=== PATIENT | female | born 1980 | race Hispanic/Latino ===

== ENCOUNTER 2019-05-21 13:08 | Inpatient (IN) | payer MEDICAID, OTHER, SELFPAY ==
[~2019-05-21 13:08] MED LIST: Ondansetron PF 4 MG/2 ML Vial ONE; PHENYLEPHRINE-NS 100 MCG/ML 10 ML SYRINGE ONE; ePHEDrine 50 MG/ML VIAL ONE
[2019-05-21 13:44] VITALS: BMI 31.1
[2019-05-21] MEDS ORDERED: Butorphanol Tartrate 1 MG/ML VIAL SLOW IVP PRN (14:02)
[2019-05-21] MEDS ORDERED: hydrALAZINE 20 MG/ML VIAL SLOW IVP PRN ×2 (14:02→23:10)
[2019-05-21] MEDS ORDERED: Ondansetron PF 4 MG/2 ML Vial IVP PRN ×3 (14:02→20:12)
[2019-05-21] MEDS ORDERED: CEFAZOLIN 2 GM in Premix Bag 1 BAG IVPB SCH (14:15)
[2019-05-21] MEDS ORDERED: Bicitra 30 ML UDCUP PO SCH (14:15)
[2019-05-21] MEDS ORDERED: Lactated Ringer's 1,000 ML IV SCH (14:15)
[2019-05-21] MEDS: Lactated Ringer's 1,000 ML IV SCH ×2 (15:09→23:03)
[2019-05-21 15:16] LABS: Mean Corpuscular HGB CONC 35.2 g/dL (32.0-36.0); Mean Corpuscular Hemoglobin 29.9 pg (27.0-31.0); Mean Platelet Volume 7.7 fL (7.4-10.4); Platelet Count 248 thou/uL (130-400); RBC Distribution Width 11.9 % (11.5-14.5); Red Blood Cell (RBC) Count 3.67 mill/uL (4.20-5.40); White Blood Cell (WBC) Count 8.3 thou/uL (4.8-10.8)
[2019-05-21 15:50] LABS: HBSAg Index 0.19 S/CO (0-0.99); Hep B Surf Ag Non-Reactive S/CO (NonReactive)
[2019-05-21 15:51] LABS: Syphilis Antibody Nonreactive (Nonreactive); Syphilis Antibody Index 0.03 S/CO (<1.00 Non-Reactive)
[2019-05-21] MEDS ORDERED: Promethazine HCl 25 MG/ML VIAL IM PRN ×2 (19:02→20:12)
[2019-05-21] MEDS ORDERED: Acetaminophen 325 MG TAB PO PRN (19:02)
[2019-05-21] MEDS ORDERED: diphenhydrAMINE 50 MG/ML VIAL IVP PRN ×2 (19:02→20:12)
[2019-05-21] MEDS ORDERED: ePHEDrine/0.9% NaCl/PF SYRINGE 50 mg/10 ml SLOW IVP PRN (19:02)
[2019-05-21] MEDS ORDERED: Lactated Ringer's 500 ML IV PRN (19:02)
[2019-05-21] MEDS ORDERED: Naloxone HCl 0.4 mg/ml Vial IVP PRN ×4 (19:02→20:12)
[2019-05-21] MEDS ORDERED: Fentanyl 4 mcg/Bupivacaine 0.1% Cassette 100 ML EPIDURAL SCH (19:15)
[2019-05-21] MEDS ORDERED: Communication Order-Pharmacy FS SCH ×2 (19:15→20:15)
[2019-05-21] MEDS ORDERED: MORPHINE 5 MG/10 ML PF VIAL ONE (19:20)
[2019-05-21] MEDS ORDERED: PHENYLEPHRINE-NS 100 MCG/ML 10 ML SYRINGE ONE (19:43)
[2019-05-21] MEDS ORDERED: Ondansetron PF 4 MG/2 ML Vial ONE (19:43)
[2019-05-21] MEDS ORDERED: Oxytocin 10 UNITS/ML VIAL ONE (19:43)
[2019-05-21] MEDS ORDERED: ePHEDrine/0.9% NaCl/PF SYRINGE 50 mg/10 ml ONE (19:46)
[2019-05-21] MEDS ORDERED: Naloxone HCl 0.4 mg/ml Vial IV PRN (20:12)
[2019-05-21] MEDS ORDERED: HYDROmorphone 2 MG/ML VIAL SLOW IVP PRN (20:12)
[2019-05-21] MEDS ORDERED: Ketorolac Tromethamine 30 MG/ML VIAL IVP PRN (20:12)
[2019-05-21] MEDS ORDERED: Ondansetron HCl/PF 4 MG/2 ML Vial IVP PRN (20:12)
[2019-05-21] MEDS ORDERED: L&D-Morphine 4 MG/ML VIAL SLOW IVP PRN (20:12)
[2019-05-21] MEDS ORDERED: Meperidine HCl/PF 25 MG/ML VIAL SLOW IVP PRN (20:12)
[2019-05-21] MEDS ORDERED: Promethazine HCl 25 MG SUPP PR PRN (20:12)
[2019-05-21] MEDS ORDERED: Ketorolac Tromethamine 30 MG/ML VIAL IVP SCH (20:15)
[2019-05-21] MEDS ORDERED: NS / Oxytocin 40 units/1000ml 1,000 ML ONE (21:31)
[2019-05-21] MEDS ORDERED: Adacel (T-DAP) 0.5 ML SYRINGE IM ONE (23:10)
[2019-05-21] MEDS ORDERED: NS / Oxytocin 40 units/1000ml 1,000 ML IV SCH (23:10)
[2019-05-21] MEDS ORDERED: Lanolin Ointment 7 GM TUBE TOP PRN (23:10)
--- NOTE | 2019-05-22 02:46 | OP ---
DATE OF PROCEDURE: 05/21/2019 RESIDENT PHYSICIAN: Sherice Sanchez DO TECHNICAL TRAINING MANAGER PHYSICIAN: Joaquina Jin MD ATTENDING PHYSICIAN: Abdirashid Espinoza MD INDICATIONS: This is a 38-year-old G5, P1-0-3-1, at 39 and 2 weeks, who presents to Labor and Delivery with spontaneous rupture of membranes at 12 p.m. on 2018. The patient has a history of prior section for breech presentation. She was counseled on TOLAC on several different occasions, and the patient is opting for repeat at this time. Of note, the patient does not desire any future pregnancies. PREOPERATIVE DIAGNOSES: 1. Spontaneous rupture of membranes. 2. Prior section x1. 3. Term intrauterine . 4. Advanced maternal age. 5. Late transfer of care from [place]. POSTOPERATIVE DIAGNOSES: 1. Term intrauterine , delivered. 2. Repeat low-transverse section. 3. Advanced maternal age. 4. Late transfer of care from [place]. PROCEDURE IN DETAIL: After risks, benefits, and alternatives with this were discussed with the patient, she was taken back to operating room. She was given 2 g of Ancef prior to initiation of the procedure. The patient underwent spinal anesthesia and was placed in the supine position with a left tilt. Incision was made and carried down to the level of the fascia, which was sharply nicked. The fascia was extended laterally using John scissors. The inferior and superior of the cut fascial edges were elevated and dissected free using blunt force as well as utilizing John scissors. The peritoneum was entered bluntly and retracted manually. An Fransisco O was placed. A bladder flap was created using Metzenbaum scissors, and the uterus was entered using sharp and blunt force. It was then extended manually. Infant was delivered in the cephalic position with gentle fundal pressure and no complications. The cord was cut, and a viable female was handed to the waiting nurse. Cord blood was collected. The placenta was delivered spontaneously intact with fundal massage. There were bleeding arteries noted on the left lateral aspect of the uterine incision. Hemostasis was achieved utilizing 2 zadkst-lu-kuqoe stitches. The remainder of the uterine incision was then brought together using 1-[address]-1 in a running locking fashion. There was an area of bleeding noted at the right lateral aspect of the uterine incision which was brought together using a oqgdon-ny-afvjy stitch. After this, hemostasis was noted. The abdomen was irrigated and suctioned free of clots. The fascia was then closed using 0 Vicryl suture in a running nonlocking fashion. The subcutaneous tissue was then irrigated and suctioned free of clots. Bleeders were cauterized. The subcutaneous tissue was brought together using 2-0 plain gut in a running nonlocking fashion. The skin was then closed using 4-0 monofilament. Dermabond was then applied to the incision and a pressure dressing was placed. The patient went to Recovery for routine recovery/care. No complications noted. DRAINS: Coello to gravity, draining clear urine. SPECIMENS: Placenta intact with three-vessel cord noted and discarded, blood gas sent for blood typing. ESTIMATED BLOOD LOSS: 640 mL. A viable female infant was born at 2007 hours via repeat low-transverse C- section. Apgars were 9 and 10 at one and five minutes respectively. went to Nursery for routine recovery/care. I was present and scrubbed, supervising the case hands on. I have read and agree with the above documentation Job ID: [id number] MTDD
[2019-05-22 05:07] LABS: Hemoglobin 8.8 g/dL (12.0-16.0); Mean Corpuscular HGB CONC 34.6 g/dL (32.0-36.0); Mean Corpuscular Hemoglobin 30.2 pg (27.0-31.0); Mean Corpuscular Volume 87.2 fL (78.0-98.0); Mean Platelet Volume 7.3 fL (7.4-10.4); Platelet Count 202 thou/uL (130-400); RBC Distribution Width 11.8 % (11.5-14.5); Red Blood Cell (RBC) Count 2.91 mill/uL (4.20-5.40); White Blood Cell (WBC) Count 10.4 thou/uL (4.8-10.8)
[2019-05-22] MEDS: Lactated Ringer's 1,000 ML IV SCH (05:22)
--- NOTE | 2019-05-22 08:11 | PDOC.PP ---
Post Progress Note Post Day #: 1 Subjective: Patient doing well. No significant overnight events. Has yet to ambulate. Wyman still in place. Minimal pain. PO intake tolerated: yes Flatus: yes Ambulation: yes Vital Signs (12 hours) Temp Pulse Resp BP BP Pulse Ox 05/22/19 03:56 99.0 F 65 16 105/53 L 05/22/19 00:30 99.3 F 77 16 111/58 L 05/21/19 23:30 98.4 F 80 16 115/69 98 Weight Weight 86 kg - Physical Examination General: NAD Cardiovascular: RRR Respiratory: non-labored breathing Abdominal: + bowel sounds, lochia (minimal), no distention, appropriately TTP Fundus firm & at: at umbilicus Extremities: negative homans (B) Skin: CS incision dry & intact (pressure dressing still in place), no rash Neurological: no gross focal deficits Psychiatric: A&Ox3, normal affect Result Diagrams: 05/22/19 04:41 Additional Labs: Post Labs Blood Type B POSITIVE 05/21/19 15:47 Hep Bs Antigen Non-Reactive S/CO (NonReactive) 05/21/19 15:00 (1) Term delivered Code(s): O80 - ENCOUNTER FOR FULL-TERM UNCOMPLICATED DELIVERY Status: Acute (2) S/P repeat low transverse Code(s): Z98.891 - HISTORY OF UTERINE SCAR FROM PREVIOUS SURGERY Status: Acute (3) Advanced maternal age (AMA) in Code(s): [id number] - Status: Acute - Assessment/Plan 38 year old delivered TAGA F infant at 20:07 on 05/21 via rLTCS 1. Routine PP care - Post op day #1 - Remove wyman catheter today - Advanc diet - Encourage ambulation - Incision still with pressure dressing in place - Rh +, Rubella immune 2. AMA 3. rLTCS - First C/S for breech presentation - Patient counseled on rLTCS vs. , opted for rLTCS - Does not desire future children 4. PP contraception - IUD Dispo: Routine Post-op care. Anticipate discharge in next 48 hours. Addendum - Attending - Attending Attestation Date/Time: 05/23/19 0950 I personally evaluated the patient and discussed the management with Dr. Brown I agree with the History, Examination, Assessment and Plan documented above with any addition or exceptions noted below.
[2019-05-22] MEDS: HYDROcodone/Acetaminophen 5/325 mg Tablet PO PRN ×3 (09:30→19:36)
[2019-05-22] MEDS: Docusate Calcium (SURFAK) 240 MG CAP PO SCH ×2 (09:30→19:36)
[2019-05-22] MEDS: Prenatal Vitamin 1 TAB PO SCH (09:30)
[2019-05-22] MEDS: Ferrous Sulfate 325 MG TAB PO SCH ×2 (09:30→21:17)
[2019-05-22] MEDS ORDERED: Ketorolac Tromethamine 30 MG/ML VIAL IVP SCH (18:00)
[2019-05-22] MEDS ORDERED: Polyethylene Glycol 3350 17 GM Packet PO SCH (20:30)
[2019-05-22] MEDS: Ibuprofen 800 MG TAB PO SCH (21:17)
[2019-05-22] MEDS ORDERED: Ibuprofen 800 MG TAB PO SCH (22:00)
[2019-05-23] MEDS: Ibuprofen 800 MG TAB PO SCH ×3 (04:12→21:03)
--- NOTE | 2019-05-23 06:18 | PDOC.PP ---
Post Progress Note Post Day #: 2 Subjective: Patient doing well. No significant overnight events. Patient tolerating PO and ambulating without difficulty. Lochia minimal. PO intake tolerated: yes Flatus: yes Ambulation: yes Vital Signs (12 hours) Temp Pulse Resp BP Pulse Ox 05/23/19 04:14 98.3 F 63 16 120/58 L 05/22/19 23:45 97.6 F 69 16 101/56 L 05/22/19 19:11 98.9 F 88 12 110/68 97 Weight Weight 86 kg - Physical Examination General: NAD Cardiovascular: RRR Respiratory: non-labored breathing Abdominal: + bowel sounds, lochia (minimal), no distention, appropriately TTP Fundus firm & at: below umbilicus Extremities: negative homans (B) Skin: CS incision dry & intact, no rash Neurological: no gross focal deficits Psychiatric: A&Ox3, normal affect Result Diagrams: 05/22/19 04:41 Additional Labs: Post Labs Blood Type B POSITIVE 05/21/19 15:47 Hep Bs Antigen Non-Reactive S/CO (NonReactive) 05/21/19 15:00 (1) Term delivered Code(s): O80 - ENCOUNTER FOR FULL-TERM UNCOMPLICATED DELIVERY Status: Acute (2) S/P repeat low transverse Code(s): Z98.891 - HISTORY OF UTERINE SCAR FROM PREVIOUS SURGERY Status: Acute (3) Advanced maternal age (AMA) in Code(s): [id number] - Status: Acute - Assessment/Plan 38 year old delivered TAGA F at 20:07 on 05/21 via rLTCS 1. Routine PP care - Post op day #2 - Encourage ambulation - Incision clean, dry, intact - Rh +, Rubella immune 2. AMA 3. rLTCS - First C/S for breech presentation - Patient counseled on rLTCS vs. , opted for rLTCS - Does not desire future children 4. PP contraception - IUD Dispo: Routine Post-op care. Anticipate discharge in next 24 hours. Addendum - Attending - Attending Attestation Date/Time: 05/24/19 [id number] I personally evaluated the patient and discussed the management with Dr. Ferreira. I agree with the History, Examination, Assessment and Plan documented above.
[2019-05-23] MEDS: Ferrous Sulfate 325 MG TAB PO SCH ×2 (09:26→21:03)
[2019-05-23] MEDS: Prenatal Vitamin 1 TAB PO SCH (09:26)
[2019-05-23] MEDS: Docusate Calcium (SURFAK) 240 MG CAP PO SCH ×2 (09:26→21:03)
[2019-05-23] MEDS: Polyethylene Glycol 3350 17 GM Packet PO SCH (09:26)
[2019-05-23] MEDS ORDERED: Milk Of Magnesia 30 ML UDCUP PO PRN (10:45)
[2019-05-23] MEDS ORDERED: Bisacodyl 10 MG SUPP PR PRN (20:23)
[2019-05-23] MEDS: HYDROcodone/Acetaminophen 5/325 mg Tablet PO PRN (21:03)
[2019-05-24] MEDS: Ibuprofen 800 MG TAB PO SCH ×2 (05:44→12:57)
[2019-05-24] MEDS ORDERED: Fleet Enema 133 ML BOT PR SCH (07:45)
[2019-05-24] MEDS: Docusate Calcium (SURFAK) 240 MG CAP PO SCH (08:06)
[2019-05-24] MEDS: HYDROcodone/Acetaminophen 5/325 mg Tablet PO PRN ×2 (08:06→12:57)
[2019-05-24] MEDS: Prenatal Vitamin 1 TAB PO SCH (08:06)
[2019-05-24] MEDS: Ferrous Sulfate 325 MG TAB PO SCH (08:07)
[2019-05-24 08:21] VITALS: BP 112/62; TEMP 98.2
[2019-05-24] MEDS ORDERED: Polyethylene Glycol 3350 17 GM Packet PO SCH (09:00)
[2019-05-24] MEDS: Polyethylene Glycol 3350 17 GM Packet PO SCH (09:43)
--- NOTE | 2019-05-24 11:03 | PDOC.PP ---
Post Progress Note Post Day #: 3 Subjective: Patient endorses constipation. She has been taking laxatives and had a suppository yesterday with no relief. She endorses associated abdominal pain. Patient states she has a history of constipation, but would really like to have a bowel movement. Patient denies N/V. She endorses hemorrhoids. Denies lochia. Denies fever, chills. PO intake tolerated: yes Flatus: yes Ambulation: yes Vital Signs (12 hours) Temp Pulse Resp BP Pulse Ox 05/24/19 08:21 98.2 F 70 15 112/62 99 05/24/19 07:45 99 05/24/19 04:10 97.8 F 79 20 120/65 05/23/19 23:50 97.8 F 78 20 109/70 99 Weight Weight 86 kg - Physical Examination General: NAD Cardiovascular: RRR Respiratory: non-labored breathing Abdominal: + bowel sounds, lochia (Minimal), no distention Deviation from normal: Mildly tender to palpation, but seems appropriate given C /S Fundus firm & at: below umbilicus Extremities: negative homans (B) Skin: CS incision dry & intact, no rash Neurological: no gross focal deficits Psychiatric: A&Ox3, normal affect Result Diagrams: 05/22/19 04:41 Additional Labs: Post Labs Blood Type B POSITIVE 05/21/19 15:47 Hep Bs Antigen Non-Reactive S/CO (NonReactive) 05/21/19 15:00 (1) Term delivered Code(s): O80 - ENCOUNTER FOR FULL-TERM UNCOMPLICATED DELIVERY Status: Acute (2) S/P repeat low transverse Code(s): Z98.891 - HISTORY OF UTERINE SCAR FROM PREVIOUS SURGERY Status: Acute (3) Advanced maternal age (AMA) in Code(s): [id number] - Status: Acute - Assessment/Plan 38 year old delivered TAGA F infant at 20:07 on 05/21 via rLTCS 1. Routine PP care - Post op day #3 - Encourage ambulation - Incision clean, dry, intact - Rh +, Rubella immune - Patient with significant constipation; has been on several laxatives and received suppository without any relief. Will add enema this AM. Consider abdominal xray to evaluate stool burden if not resolved. 2. AMA 3. rLTCS - First C/S for breech presentation - Patient counseled on rLTCS vs. , opted for rLTCS - Does not desire future children 4. PP contraception - IUD Dispo: Routine Post-op care. Anticipate discharge in next 24 hours. Awaiting BM.
--- NOTE | 2019-05-24 12:42 | RAD ---
KUB: 05/24/19 INDICATION: Abdominal pain, constipation. COMPARISON: None. FINDINGS: Bowel gas pattern is nonspecific. There is mild gaseous distention of loops of colon within the upper abdomen. No suspicious calcifications evident. No acute osseous abnormality is evident. IMPRESSION: No acute abnormality. POS: TPC
== END 2019-05-24 16:40 | disposition home or self-care (01) | DRG 788 ==
LOC: L&D/OP 13:08 → L&D 19:24 → 3SW 23:48
PROVIDERS: ADMIT Obstetrics & Gynecology; ATTEND Obstetrics & Gynecology
PROC: 10D00Z1 Extraction of Products of Conception, Low, Open Approach (ICD-10-PCS; principal; 2019-05-21)
DX: O34.211 Maternal care for low transverse scar from previous cesarean delivery (principal); Z3A.39 39 weeks gestation of pregnancy; Z37.0 Single live birth
CPT/HCPCS: 36415; 74018; 85027; 86780; 86850; 86900; 86901; 87340; 90715; J0595; J0690; J1200; J1885; J2274; J2405; J2590; J3490